=== PATIENT | female | born 1985 | race American Indian/Alaskan Native ===

== ENCOUNTER 2019-05-14 20:07 | Emergency (ER) | payer SELFPAY ==
[2019-05-15] MEDS ORDERED: KETOROLAC 30 MG/1 ML INJ IM ONE (00:13)
[2019-05-15] MEDS ORDERED: FAMOTIDINE 20 MG TAB PO ONE (00:13)
[2019-05-15] MEDS ORDERED: BUTALB/ACETAMINOPHEN/CAFFEINE TAB PO ONE (00:13)
[2019-05-15] MEDS ORDERED: ONDANSETRON 4 MG ODT TAB PO ONE (00:13)
[2019-05-15] MEDS ORDERED: predniSONE 20 MG TAB PO ONE (00:27)
[2019-05-15] MEDS ORDERED: predniSONE 20 MG TAB ONE (00:28)
[2019-05-15 00:30] LABS: Bilirubin,Urine NEG (Negative); Blood,Urine NEG (Negative); Color,Urine Yellow (Yellow); Mucus,Urine FEW /HPF; Protein,Urine <15 mg/dL mg/dL (Negative); Urobilinogen,Urine < 2.0 mg/dL (<2.0)
[2019-05-15 00:39] LABS: HCG Qualitative,Urine Negative (Negative)
--- NOTE | 2019-05-15 01:05 | XRay Report ---
CHEST 2 VIEWS INDICATION / CLINICAL INFORMATION: cough. COMPARISON: None available. FINDINGS: SUPPORT DEVICES: None. HEART / MEDIASTINUM: No significant abnormality. LUNGS / PLEURA: No significant pulmonary or pleural abnormality. No pneumothorax. ADDITIONAL FINDINGS: No significant additional findings. IMPRESSION: 1. No acute findings. Signer Name: Toño Saab MD Signed: 05/15/2019 1:00 AM Workstation Name: [id number]
[2019-05-15 01:19] LABS: Basophils % (Auto) 0.5 % (0.0-1.8); Eosinophils % (Auto) 1.3 % (0.0-4.3); Hematocrit 39.3 % (30.3-42.9); Hemoglobin 12.6 gm/dl (10.1-14.3); Lymphocytes # (Auto) 1.4 K/mm3 (1.2-5.4); Lymphocytes % (Auto) 39.6 % (13.4-35.0); Mean Corpuscular HGB Conc 32 % (30-34); Mean Corpuscular Volume 81 fl (79-97); Monocytes # (Auto) 0.4 K/mm3 (0.0-0.8); Monocytes % (Auto) 11.1 % (0.0-7.3); Platelet Count 317 K/mm3 (140-440); Red Blood Count 4.85 M/mm3 (3.65-5.03); Red Cell Distribution Width 14.3 % (13.2-15.2)
--- NOTE | 2019-05-15 01:20 | Emergency Department Report ---
ED General Adult HPI - General Chief complaint: Headache Stated complaint: MIGRAINE Source: patient Mode of arrival: Ambulatory Limitations: No Limitations - History of Present Illness Initial comments: Patient is a 33-year-old -[place] female with no past medical history who presents to the ED with complaint of acute onset persistent headache that she describes as sharp persistent and intermittent with nausea and mild epigastric pain. Patient states that she has been taking [id number] Tylenol with no relief. Patient denies fever, chills, cough, shortness of breath, vision changes, chest pain, nasal and sinus congestion, sore throat, dysuria, urinary frequency and urgency, abdominal pain, syncope, palpitations or hearing loss. MD Complaint: headache, nausea, epigastric discomfort -: Sudden, days(s) (2) Location: head, chest, abdomen (epigastric) Radiation: non-radiation Severity scale (0 -10): 7 Quality: aching, sharp Consistency: constant Improves with: none Worsens with: none Associated Symptoms: denies other symptoms, cough, headaches, loss of appetite, nausea/vomiting. denies: confusion, chest pain, diaphoresis, fever/chills, malaise, rash, seizure, shortness of breath, syncope, weakness - Related Data Previous Rx's Medication Instructions Recorded Last Taken Type Butalb/Acetamin/Caff 50-325-40 1 - 2 tab PO Q6HR PRN #15 tab 05/15/19 Unknown Rx [Fioricet 50-325-40] Famotidine [Pepcid] 20 mg PO Q12H #30 tablet 05/15/19 Unknown Rx Ibuprofen [Motrin] 400 mg PO Q8H PRN #24 tablet 05/15/19 Unknown Rx Ondansetron [Zofran Odt] 4 mg PO Q8HR PRN #15 tab.rapdis 05/15/19 Unknown Rx Allergies Allergy/AdvReac Type Severity Reaction Status Date / Time No Known Allergies Allergy Verified 05/15/19 00:34 ED Review of Systems ROS: Stated complaint: MIGRAINE Other details as noted in HPI Constitutional: denies: chills, fever Eyes: denies: eye pain, eye discharge, vision change ENT: denies: ear pain, throat pain Respiratory: denies: cough, shortness of breath, wheezing Cardiovascular: denies: chest pain, palpitations Endocrine: no symptoms reported Gastrointestinal: abdominal pain (epigastric discomfort), nausea. denies: diarrhea Genitourinary: denies: urgency, dysuria, discharge Musculoskeletal: myalgia. denies: back pain, joint swelling, arthralgia Skin: denies: rash, lesions Neurological: headache. denies: weakness, paresthesias Psychiatric: denies: anxiety, depression Hematological/Lymphatic: denies: easy bleeding, easy bruising ED Past Medical Hx - Past Medical History Previous Medical History?: No - Surgical History Past Surgical History?: Yes Additional Surgical History: Vaginal births x 3 - Social History Smoking Status: Never Smoker Substance Use Type: Marijuana - Medications Home Medications: Home Medications Medication Instructions Recorded Confirmed Last Taken Type Butalb/Acetamin/Caff 50-325-40 1 - 2 tab PO Q6HR PRN #15 tab 05/15/19 Unknown Rx [Fioricet 50-325-40] Famotidine [Pepcid] 20 mg PO Q12H #30 tablet 05/15/19 Unknown Rx Ibuprofen [Motrin] 400 mg PO Q8H PRN #24 tablet 05/15/19 Unknown Rx Ondansetron [Zofran Odt] 4 mg PO Q8HR PRN #15 tab.rapdis 05/15/19 Unknown Rx ED Physical Exam - General Limitations: No Limitations General appearance: alert, in no apparent distress - Head Head exam: Present: atraumatic, normocephalic, normal inspection - Eye Eye exam: Present: normal appearance, PERRL, EOMI Pupils: Present: normal accommodation - ENT ENT exam: Present: normal exam, normal orophraynx, mucous membranes moist, TM's normal bilaterally, normal external ear exam - Neck Neck exam: Present: normal inspection, full ROM. Absent: tenderness, menin gismus - Respiratory Respiratory exam: Present: normal lung sounds bilaterally. Absent: respiratory distress, wheezes, rales, rhonchi, chest wall tenderness - Cardiovascular Cardiovascular Exam: Present: regular rate, normal rhythm, normal heart sounds. Absent: bradycardia, systolic murmur, diastolic murmur, rubs, gallop - GI/Abdominal GI/Abdominal exam: Present: soft, normal bowel sounds. Absent: tenderness, guarding, rigid, hyperactive bowel sounds, mass - Extremities Exam Extremities exam: Present: normal inspection, full ROM, normal capillary refill - Back Exam Back exam: Present: normal inspection, full ROM. Absent: tenderness, CVA tenderness (R), CVA tenderness (L), muscle spasm, paraspinal tenderness - Neurological Exam Neurological exam: Present: alert, oriented X3, CN II-XII intact, normal gait, reflexes normal - Psychiatric Psychiatric exam: Present: normal affect, normal mood - Skin Skin exam: Present: warm, dry, intact, normal color. Absent: rash ED Course Vital Signs 05/14/19 05/15/19 05/15/19 20:34 00:22 00:23 Temperature 98.6 F Pulse Rate 73 Respiratory 18 18 18 Rate Blood Pressure 132/84 O2 Sat by Pulse 100 Oximetry ED Medical Decision Making - Lab Data Result diagrams: 05/15/19 01:07 05/15/19 01:07 - Radiology Data Radiology results: report reviewed, image reviewed Chest x-ray shows no acute cardiopulmonary abnormalities or pneumonitis. - Medical Decision Making This is a 33-year-old female who presented to the ED with persistent headache, nausea and mild epigastric discomfort for 2 days. In the ED, patient is alert and oriented x3 and is not in distress. Lab test results were reviewed and are all nonactionable including urinalysis. Patient was treated for pain and also for nausea and vomiting as well as antacid. On reevaluation, patient's pain is well controlled with medications and has not had any nausea or vomiting in the ED. Patient was discharged home on medications for pain and was advised to follow-up with her primary care physician in 5 to 7 days for reevaluation. Patient was was advised to return to the ED immediately if symptoms get worse. - Differential Diagnosis tension headache; GERD; dehydration, viral URI Critical care attestation.: If time is entered above; I have spent that time in minutes in the direct care of this critically ill patient, excluding procedure time. ED Disposition Clinical Impression: GERD without esophagitis Tension type headache Qualifiers: Headache chronicity pattern: acute headache Intractability: not intractable Qualified Code(s): G44.209 - Tension-type headache, unspecified, not intractable Disposition: DC-01 TO HOME OR SELFCARE Is pt being admited?: No Does the pt Need Aspirin: No Condition: Stable Instructions: Gastroesophageal Reflux Disease (ED), Acute Headache (ED) Additional Instructions: All lab test results are. Chest x-ray showed no acute cardiopulmonary abnormalities or pneumonitis. Therefore take medications as needed, drink plenty of fluids and follow-up with your primary care physician in 5 to 7 days for reevaluation. Return to the ED immediately if symptoms get worse. Prescriptions: Butalb/Acetamin/Caff 50-325-40 [Fioricet 50-325-40] 1 - 2 tab PO Q6HR PRN #15 tab PRN Reason: Headache Ibuprofen [Motrin] 400 mg PO Q8H PRN #24 tablet PRN Reason: Pain , Severe (7-10) Famotidine [Pepcid] 20 mg PO Q12H #30 tablet Ondansetron [Zofran Odt] 4 mg PO Q8HR PRN #15 tab.rapdis PRN Reason: nausea Referrals: JACKIE COLE MD [Staff Physician] - 3-5 Days Forms: Work/School Release Form(ED) Time of Disposition: 02:05 Print Language: CHINESE
[2019-05-15 01:44] LABS: Alanine Aminotransferase 17 units/L (7-56); Albumin 4.6 g/dL (3.9-5); BUN/Creatinine Ratio 13; Blood Urea Nitrogen 10 mg/dL (7-17); Calcium 9.3 mg/dL (8.4-10.2); Hemolysis Index 11
[2019-05-15 03:07] VITALS: BP 116/46
== END 2019-05-15 02:45 | disposition home or self-care (01) ==
LOC: ED 20:07
DX: K21.9 Gastro-esophageal reflux disease without esophagitis (principal); G44.209 Tension-type headache, unspecified, not intractable; F12.10 Cannabis abuse, uncomplicated; Z79.899 Other long term (current) drug therapy; Z79.1 Long term (current) use of non-steroidal anti-inflammatories (NSAID); Z98.890 Other specified postprocedural states
CPT/HCPCS: 36415; 71046; 80053; 81001; 81025; 84443; 85025; 96372; 99284; J1885; J7512; Q0162

== ENCOUNTER 2019-07-02 10:42 | Emergency (ER) | payer SELFPAY ==
[2019-07-02 10:49] VITALS: BP 125/77
--- NOTE | 2019-07-02 11:21 | Emergency Department Report ---
Chief Complaint: Dental/Oral Stated Complaint: ITCHY THROAT - HPI History of Present Illness: 33-year-old -[place] female presents to the emergency room complaining of itchy throat from seasonal allergies. Patient denies any fever chills no nausea no vomiting no shortness of breath or chest pain. Patient states she has been taking Claritin. - Exam Vital Signs: Vital Signs 07/02/19 10:47 Temperature 98.6 F Pulse Rate 82 Respiratory 20 Rate Blood Pressure 125/77 O2 Sat by Pulse 100 Oximetry Physical Exam: Patient is alert and oriented x3 no acute distress. Respirations are even, Throat non erythematous no edema, no exudate, no difficulty in swallowing and ambulatory without difficulties MSE screening note: Focused history and physical exam performed. Due to findings the following was ordered: 33-year-old -[place] female presents to the emergency room complaining of itchy throat from seasonal allergies. Patient denies any fever chills no nausea no vomiting no shortness of breath or chest pain. Patient states she has been taking Claritin. Please take Zyrtec's or Cherelle for allergies. You can follow-up with the urgent care. Tylenol or ibuprofen as needed for pain. ED Disposition for MSE Disposition: Z-07 MED SCREENING EXAM-LEFT Is pt being admited?: No Does the pt Need Aspirin: No Condition: Stable Additional Instructions: Please take Zyrtec's or Cherelle for allergies. You can follow-up with the urgent care. Tylenol or ibuprofen as needed for pain. Referrals: PRIMARY CARE, [Primary Care Provider] - 3-5 Days [facility] [Provider Group] - 3-5 Days
== END 2019-07-02 11:28 | disposition left against medical advice (07) ==
LOC: ED 10:42
DX: R07.0 Pain in throat (principal)
CPT/HCPCS: 99281